=== PATIENT | female | born 1970 | race Caucasian/White ===

== ENCOUNTER 2021-12-19 11:31 | Emergency (ER) | payer MEDICAID ==
[2021-12-19] MEDS ORDERED: ENDOCET 5-3251 EACH PO (13:48)
== END 2021-12-19 14:04 | disposition home or self-care (01) ==
LOC: ER1 11:31
DX: S52.501A Unspecified fracture of the lower end of right radius, initial encounter for closed fracture (principal); S52.611A Displaced fracture of right ulna styloid process, initial encounter for closed fracture; W19.XXXA Unspecified fall, initial encounter
CPT/HCPCS: 29125; 73110; 99283